=== PATIENT | male | born 1955 | race Caucasian/White ===

== ENCOUNTER 2018-08-01 17:48 | Emergency (ER) | payer BC ==
[~2018-08-01] VITALS: Ht 170.2 cm; Wt 280.0 kg
[~2018-08-01 17:48] MED LIST: OXYC20OR
[2018-08-01 17:50] VITALS: BP 131/95
[2018-08-01] MEDS ORDERED: ketorolac trometh inj. 60 MG/2 ML VIAL IM ONE (18:05)
[2018-08-01] MEDS ORDERED: morphine 4 MG/ML inj SYRINge IM ONE (18:05)
[2018-08-01] MEDS ORDERED: ondansetron 4mg rapidly disintigrating tab PO ONE (18:05)
--- NOTE | 2018-08-01 18:46 | NUR ---
Pt complains of center and lower back pain secondary to mechanical fall from ladder. Pt also has right sided rib pain. Pt states he hit the right side of his head on the gun safe when he fell, no lacerations, swelling or bruising observed. Pt denies N/V, vision changes, dizziness or other neuro symptoms.
[2018-08-01] MEDS ORDERED: ORPH100T2 PO (18:57)
== END 2018-08-01 19:11 | disposition home or self-care (01) ==
LOC: ER 17:48
DX: S29.012A Strain of muscle and tendon of back wall of thorax, initial encounter (principal); S30.1XXA Contusion of abdominal wall, initial encounter; E11.9 Type 2 diabetes mellitus without complications; Z98.890 Other specified postprocedural states; Z88.5 Allergy status to narcotic agent; Z88.6 Allergy status to analgesic agent; Z79.899 Other long term (current) drug therapy; W11.XXXA Fall on and from ladder, initial encounter; Y93.39 Activity, other involving climbing, rappelling and jumping off; Y92.89 Other specified places as the place of occurrence of the external cause; Y99.8 Other external cause status
CPT/HCPCS: 72070; 72100; 96372; 99283; J1885; J2270